=== PATIENT | male | born 1950 | race Caucasian/White ===

== ENCOUNTER 2021-02-17 15:20 | Inpatient (IN) | payer OTHER ==
[~2021-02-17] VITALS: Ht 185.4 cm; Wt 113.4 kg
[2021-02-17 16:23] LABS: BASOPHILS PERCENT AUTO 1 % (0-2); EOSINOPHILS ABSOLUTE AUTO 0.69 K/mm3 (0.00-0.68); EOSINOPHILS PERCENT AUTO 9 % (0-6); Hematocrit 44.7 % (37.0-53.0); Hemoglobin 14.6 g/dL (13.5-17.5); IMMATURE GRAN ABSOLUTE AUTO 0.14 K/mm3 (0.00-0.10); IMMATURE GRAN PERCENT AUTO 2 % (0-1); LYMPHOCYTES ABSOLUTE AUTO 1.77 K/mm3 (0.84-5.20); LYMPHOCYTES PERCENT AUTO 23 % (21-46); MONOCYTES ABSOLUTE AUTO 0.51 K/mm3 (0.16-1.47); MONOCYTES PERCENT AUTO 7 % (4-13); Mean Corpuscular HGB 30.2 pg (26.0-34.0); Mean Corpuscular HGB Conc 32.7 g/dL (31.5-36.5); Mean Corpuscular Volume 92 fL (80-100); Mean Platelet Volume 10.1 fL (9.1-12.4); NEUTROPHILS ABSOLUTE AUTO 4.48 K/mm3 (1.96-9.15); NEUTROPHILS PERCENT AUTO 58 % (41-73); Platelet Count 162 K/mm3 (150-400); RDW Coefficient Variation 12.4 % (11.7-14.2); RDW Standard Deviation 42.5 fL (35.1-46.3); Red Blood Cell Count 4.84 M/mm3 (4.30-5.90); White Blood Cell Count 7.69 K/mm3 (4.00-11.30)
[2021-02-17] MEDS ORDERED: SYMBICORT 160-4.6 GM INH (16:25)
[2021-02-17] MEDS ORDERED: ALBU90OI6 INH (16:26)
[2021-02-17 16:52] LABS: Alanine Aminotransfer (ALT/SGP 32 U/L (12-78); Albumin/Globulin Ratio 0.8 (0.8-1.8); Alk Phos 78 U/L (50-136); Anion Gap 6 mmol/L (6-16); Aspartate Aminotrans (AST/SGOT 17 U/L (12-37); Bilirubin, Total 0.9 mg/dL (0.1-1.0); Blood Urea Nitrogen 17 mg/dL (8-24); Bun/Creatinine Ratio 16.3 (12.0-20.0); CO2, Blood 26 mmol/L (21-32); Calcium, Blood 8.6 mg/dL (8.5-10.1); Chloride, Blood 109 mmol/L (98-108); Creatinine, Blood 1.04 mg/dL (0.60-1.20); Globulin, Blood 3.9 g/dL (2.2-4.0); Glomerular Filtration Rate >60 (60-); Glucose, Blood 88 mg/dL (70-99); Potassium, Blood 4.1 mmol/L (3.5-5.5); Sodium, Blood 141 mmol/L (136-145); Total Protein, Blood 6.9 g/dL (6.4-8.2); Troponin I <0.015 ng/mL (0.000-0.040)
[2021-02-17 17:10] LABS: International Normalized Ratio 1.1; Prothrombin Time Results 11.5 Sec (9.7-11.5)
[2021-02-17 17:24] LABS: Influenza A, PCR NEGATIVE (NEGATIVE); Influenza B, PCR NEGATIVE (NEGATIVE); Resp Syncytial Virus, PCR NEGATIVE (NEGATIVE)
[2021-02-17 18:02] LABS: SARS-Cov-2 (COVID-19) PCR, MMC POSITIVE (NEGATIVE)
--- NOTE | 2021-02-17 23:00 | NUR ---
RECEIVED PT FROM ER AAOX3. VSS. DENIES CHEST PAIN. O2 2L VIA NC IN PLACE SATS >90. LUNGS WITH DIMINISHED BREATH SOUNDS. RESP UNLABORED. HEP DRIP AT 33.5ML/HR. NO SIGNS OF BLEEDING. ORIENTED PT TO SURROUNDINGS. CALL LIGHT WITHIN REACH. SR ON TELE. WILL CONTINUE TO MONITOR.
[2021-02-18 03:52] LABS: Hematocrit 41.1 % (37.0-53.0); Hemoglobin 13.6 g/dL (13.5-17.5); Mean Corpuscular HGB Conc 33.1 g/dL (31.5-36.5); Mean Corpuscular Volume 91 fL (80-100); Mean Platelet Volume 9.7 fL (9.1-12.4); Platelet Count 152 K/mm3 (150-400); RDW Coefficient Variation 12.6 % (11.7-14.2); RDW Standard Deviation 41.6 fL (35.1-46.3); Red Blood Cell Count 4.54 M/mm3 (4.30-5.90); White Blood Cell Count 6.55 K/mm3 (4.00-11.30)
--- NOTE | 2021-02-18 06:12 | NUR ---
PT SLEPT WELL THROUGH THE NIGHT. RESP UNLABORED. NO EVENTS ON TELE. O2 2L NC IN PLACE. SATS 92. TYLENOL GIVEN PRN FOR BACK PAIN AND LEFT SIDE PAIN WITH GOOD EFFECT. NO EVENTS ON TELE. CALL LIGHT WITHIN REACH.
--- NOTE | 2021-02-18 18:55 | NUR ---
PT IS VERY PLEASANT,NICE AND COORPERATIVE TO STAFF,HEPARIN STILL RUNNING.PT ON TELE SINUS 96 PER FLEET DIRECTOR.PT ON ROOM AIR.PT HAVE A 2D ECHO DONE.PT INDEP.IN THE ROOM.PT IN BED,CALL LIGHT IN REACH WILL CONTINUE TO MONITOR.
--- NOTE | 2021-02-19 03:45 | NUR ---
PT IS AAO. VSS. DENIES SOB. VSS. SR ON MONITOR. NO CHANGE IN STATUS NOTED. CALL LIGHT WITHIN REACH. NO EVENT ON TELE. SATS AT 95% ON RA. DENIES CHEST PAIN.
[2021-02-19] MEDS ORDERED: XARELTO1 EAC1 PO (13:32)
--- NOTE | 2021-02-19 13:55 | NUR ---
PT ALERT ORIENTED X 4,PT C/O HEADACHE,MEDICATED WITH TYLENOL,PT HAD A CT OF THE HEAD WICH WAS NEGATIVE,PT HAS NO ACUTE EVENTS T/O THIS SHIFT.PT IS DISCHARGE HOME,PT GATHER ALL BELONGINGS ALL DRESS WAITING FOR HIS TO COME PICK HIM UP.
== END 2021-02-19 15:07 | disposition home or self-care (01) | DRG 177 ==
LOC: ER 15:20 → MEDS 15:21
PROVIDERS: Physician Assistant; ADMIT Internal Medicine
PROC: 8E0ZXY6 Isolation (ICD-10-PCS; principal; 2021-02-18)
DX: U07.1 COVID-19 (principal); I26.99 Other pulmonary embolism without acute cor pulmonale; J96.01 Acute respiratory failure with hypoxia; J44.9 Chronic obstructive pulmonary disease, unspecified; M19.90 Unspecified osteoarthritis, unspecified site; Z86.718 Personal history of other venous thrombosis and embolism; Z28.21 Immunization not carried out because of patient refusal
CPT/HCPCS: 0241U; 36415; 70450; 80053; 83880; 84484; 85025; 85027; 85520; 85610; 85730; 93005; 93010; 93306; 94640; 94761; 94762; 96376; 99285-25; A9270; G0378; J1644

== ENCOUNTER → 2023-02-04 | Outpatient (CLI) | payer OTHER ==
[~2023-02-04] MED LIST: ALBU90OI6 INH; SYMBICORT 160-4.6 GM INH; XARELTO1 EAC1 PO
[2023-02-04 17:22] LABS: BASOPHILS ABSOLUTE AUTO 0.09 K/mm3 (0.00-0.23); BASOPHILS PERCENT AUTO 1 % (0-2); EOSINOPHILS ABSOLUTE AUTO 0.28 K/mm3 (0.00-0.68); EOSINOPHILS PERCENT AUTO 3 % (0-6); Hematocrit 46.9 % (37.0-53.0); IMMATURE GRAN ABSOLUTE AUTO 0.16 K/mm3 (0.00-0.10); IMMATURE GRAN PERCENT AUTO 2 % (0-1); LYMPHOCYTES ABSOLUTE AUTO 1.46 K/mm3 (0.84-5.20); LYMPHOCYTES PERCENT AUTO 17 % (21-46); MONOCYTES ABSOLUTE AUTO 0.78 K/mm3 (0.16-1.47); MONOCYTES PERCENT AUTO 9 % (4-13); Mean Corpuscular HGB 30.5 pg (26.0-34.0); Mean Corpuscular HGB Conc 34.1 g/dL (31.5-36.5); Mean Corpuscular Volume 90 fL (80-100); Mean Platelet Volume 10.3 fL (9.1-12.4); NEUTROPHILS ABSOLUTE AUTO 5.78 K/mm3 (1.96-9.15); NEUTROPHILS PERCENT AUTO 68 % (41-73); Platelet Count 246 K/mm3 (150-400); RDW Coefficient Variation 12.5 % (11.7-14.2); RDW Standard Deviation 41.1 fL (35.1-46.3); Red Blood Cell Count 5.24 M/mm3 (4.30-5.90); White Blood Cell Count 8.55 K/mm3 (4.00-11.30)
[2023-02-04 17:34] LABS: Albumin, Blood 3.6 g/dL (3.4-5.0); Albumin/Globulin Ratio 0.9 (0.8-1.8); Bilirubin, Total 0.5 mg/dL (0.1-1.0); Bun/Creatinine Ratio 12.6 (12.0-20.0); Creatinine, Blood 1.19 mg/dL (0.60-1.20); Potassium, Blood 4.2 mmol/L (3.5-5.5); Total Protein, Blood 7.6 g/dL (6.4-8.2)
== END ==
LOC: LAB SHORT 16:10 → LAB 16:10
PROVIDERS: Physician Assistant
DX: R10.9 Unspecified abdominal pain (principal)
CPT/HCPCS: 80053; 83690; 85025

== ENCOUNTER 2023-10-13 05:56 | Day surgery (SDC) | payer OTHER ==
[2023-10-13] VITALS (15 sets, daily range): BP systolic 122–154; BP diastolic 61–99
[~2023-10-13] VITALS: Ht 180.3 cm; Wt 110.4 kg
[~2023-10-13 05:56] MED LIST changes: +AIRDUO RESPICL1 EAC1 INH; +ALLERCLEAR10 MG PO; +ALLO100 PO; +ATOR10 PO; +DICLOFENAC SOD100 GM TP; +ERGO400 PO; +HYDACE10B PO; +LIDO700A20 TOP; +Neurontin 100100 MG PO; +Vitamin C100 M1 PO; +XARELTO20 MG PO; +[UNRECOGNIZED DRUG - OTHER] TP
[2023-10-13] MEDS ORDERED: Lactated Ringer's 1,000 ML IV SCH (06:25)
[2023-10-13] MEDS ORDERED: CeFAZolin Sodium 2,000 MG in NS 100 ML IV SCH (06:25)
[2023-10-13] MEDS ORDERED: Bupivacaine 0.5% Inj 50 ML Vial ONE (06:59)
[2023-10-13] MEDS ORDERED: propofoL 20 ML IV ONE (07:00)
[2023-10-13] MEDS ORDERED: Rocuronium Bromide 10 MG/ML 5ML Injection IV ONE ×2 (07:01→08:49)
[2023-10-13] MEDS ORDERED: FentaNYL Citrate 50 MCG/ML 2 ML Injection ONE ×3 (07:01→09:47)
[2023-10-13] MEDS ORDERED: Dexamethasone Sod Phos 10 MG/ML 1ML VIAL ONE ×2 (07:01→07:49)
[2023-10-13] MEDS ORDERED: Ondansetron HCl 2 MG / ML 2ML Vial ONE ×2 (07:01→07:49)
--- NOTE | 2023-10-13 07:11 | NUR ---
Ambulatory in Day Surgery History, Chart, Medications and Allergies reviewed before start of procedure. Pre-Op teaching done. Pt verbalizes understanding. Patient States Post-Procedure ride home has been arranged.
[2023-10-13] MEDS ORDERED: Sugammadex Sodium 200 MG/2ML SDV (100 MG/ML) ONE (08:23)
[2023-10-13] MEDS ORDERED: HYDROcodone 5-APAP 325 TAB PO PRN (09:55)
[2023-10-13] MEDS ORDERED: Metoclopramide HCl 5MG / ML 2ML Vial ONE (10:00)
[2023-10-13] MEDS ORDERED: HYDROmorphone HCl/Pf 1MG SYR ONE (10:11)
--- NOTE | 2023-10-13 11:10 | NUR ---
Discharge instructions reviewed with patient. Patient verbalizes understanding. Copy given to patient to take home. Prescription placed in discharge folder. Ice pack provided. Dressings x4 c/d/i. Patient States Post-Procedure ride home has been arranged. Discharged via wheelchair to private car for ride home.
== END 2023-10-13 11:13 | disposition home or self-care (01) ==
LOC: ORSCMMR 05:56 → ORD 07:30 → ORSCMMR 07:30
PROVIDERS: Surgery
PROC: 0FT44ZZ Resection of Gallbladder, Percutaneous Endoscopic Approach (ICD-10-PCS; principal; 2023-10-13 07:30)
PROC: BF031ZZ Plain Radiography of Gallbladder and Bile Ducts using Low Osmolar Contrast (ICD-10-PCS; principal; 2023-10-13 07:30)
PROC: 0JB80ZX Excision of Abdomen Subcutaneous Tissue and Fascia, Open Approach, Diagnostic (ICD-10-PCS; principal; 2023-10-13 07:30)
DX: K80.10 Calculus of gallbladder with chronic cholecystitis without obstruction (principal); K82.8 Other specified diseases of gallbladder; L72.3 Sebaceous cyst; J45.909 Unspecified asthma, uncomplicated; E78.5 Hyperlipidemia, unspecified; E66.9 Obesity, unspecified; Z68.34 Body mass index [BMI] 34.0-34.9, adult; Z86.718 Personal history of other venous thrombosis and embolism; Z79.01 Long term (current) use of anticoagulants; Z79.899 Other long term (current) drug therapy
CPT/HCPCS: 74300; 88304; A9270; J0690; J1100; J1170; J2405; J2704; J2765; J3010; J7120

== ENCOUNTER 2023-10-20 10:31 | Emergency (ER) | payer OTHER ==
[~2023-10-20] VITALS: Ht 182.9 cm; Wt 110.0 kg
[2023-10-20 14:15] LABS: BASOPHILS ABSOLUTE AUTO 0.08 K/mm3 (0.00-0.23); BASOPHILS PERCENT AUTO 1 % (0-2); EOSINOPHILS ABSOLUTE AUTO 0.25 K/mm3 (0.00-0.68); EOSINOPHILS PERCENT AUTO 3 % (0-6); Hematocrit 45.6 % (37.0-53.0); Hemoglobin 15.2 g/dL (13.5-17.5); IMMATURE GRAN ABSOLUTE AUTO 0.17 K/mm3 (0.00-0.10); IMMATURE GRAN PERCENT AUTO 2 % (0-1); LYMPHOCYTES ABSOLUTE AUTO 1.57 K/mm3 (0.84-5.20); LYMPHOCYTES PERCENT AUTO 18 % (21-46); MONOCYTES ABSOLUTE AUTO 0.64 K/mm3 (0.16-1.47); MONOCYTES PERCENT AUTO 8 % (4-13); Mean Corpuscular HGB 30.5 pg (26.0-34.0); Mean Corpuscular HGB Conc 33.3 g/dL (31.5-36.5); Mean Corpuscular Volume 91 fL (80-100); NEUTROPHILS ABSOLUTE AUTO 5.88 K/mm3 (1.96-9.15); NEUTROPHILS PERCENT AUTO 68 % (41-73); Platelet Count 201 K/mm3 (150-400); RDW Coefficient Variation 12.9 % (11.7-14.2); RDW Standard Deviation 42.8 fL (35.1-46.3); Red Blood Cell Count 4.99 M/mm3 (4.30-5.90); White Blood Cell Count 8.59 K/mm3 (4.00-11.30)
[2023-10-20] MEDS ORDERED: FLUT1DIS5 (14:44)
[2023-10-20 14:45] LABS: Albumin, Blood 3.4 g/dL (3.4-5.0); Bilirubin, Total 0.7 mg/dL (0.1-1.0); Bun/Creatinine Ratio 13.1 (12.0-20.0); Calcium, Blood 8.7 mg/dL (8.5-10.1); Creatinine, Blood 1.22 mg/dL (0.60-1.20); Globulin, Blood 3.3 g/dL (2.2-4.0); Potassium, Blood 4.3 mmol/L (3.5-5.5); Total Protein, Blood 6.7 g/dL (6.4-8.2)
[2023-10-20] MEDS ORDERED: OMEP20ER PO (15:02)
[2023-10-20 15:29] VITALS: BP 126/79
== END 2023-10-20 15:29 | disposition home or self-care (01) ==
LOC: ER 10:31
PROVIDERS: Emergency Medicine
DX: G89.18 Other acute postprocedural pain (principal); R10.12 Left upper quadrant pain; Z88.8 Allergy status to other drugs, medicaments and biological substances; Z79.899 Other long term (current) drug therapy; J44.9 Chronic obstructive pulmonary disease, unspecified
CPT/HCPCS: 74177; 80053; 83690; 84484; 85025; 93005; 93010; 99285-25; Q9967

== ENCOUNTER → 2024-10-10 | Outpatient (CLI) | payer SELFPAY ==
[~2024-10-10] MED LIST changes: +FLUT1DIS5; +OMEP20ER PO
== END ==
LOC: LAB 09:30 → LAB SHORT 09:30
DX: L08.0 Pyoderma (principal)
CPT/HCPCS: 87070; 87077; 87147; 87186; 87205